=== PATIENT | female | born 1940 | race Caucasian/White ===

== ENCOUNTER 2016-12-10 15:12 | Emergency (ER) | payer MEDICARE, BC ==
[~2016-12-10 15:12] MED LIST: AFLURIA 2045 MCG/0.4 IM; AZULFIDINE DPS500 MG PO; CALTRATE-600 W600 MG PO; CIPRO DPS250 MG PO; COLACE-DPS100 MG PO; COUMADIN1 MG PO; DELTASONE DPS5 MG PO; FLONASE 0.05% D16 GM NS; FOLVITE-DPS1 MG PO; KLOR-CON M2020 ME1 PO; LASIX DPS20 MG PO; MIRALAX PACKET17 GM PO; PEPCID DPS20 MG PO; POTASSIUM CHLORIDE PO; PRILOSEC DPS20 MG PO; PROVENTIL HFA6.7 GM IH; SENOKOT DPS8.6 MG PO; SENOKOT S1 TAB PO; SURFAK DPS240 MG PO; SYNTHROID DPS0.05 MG PO; SYNTHROID75 MCG PO; TENORMIN DPS50 MG PO; TYLENOL DPS325 MG PO; ULTRAM DPS50 MG PO; XANAX DPS0.25 MG PO; ZANAFLEX4 MG PO; ZYRTEC DPS10 MG PO
--- NOTE | 2016-12-28 11:50 | ER ---
ADMIT: 12/10/2016 RM/LOC: ER [facility] MR#: [id number] [address] [id number] [place], [place] [id number] Emergency Room Report SEX: F AGE: 76 : 1940 DATE: 12/10/2016 HISTORY OF PRESENT ILLNESS: She lives at an independent living facility. A 76-year-old female, presents to emergency room with left arm cellulitis for the last 24 hours. She denies any trauma. It is painful. She is right handed. PAST MEDICAL HISTORY: She has had cardiac disease with atrial fibrillation. PAST SURGICAL HISTORY: She has a pacer. IMMUNIZATIONS: Up-to-date. MEDICATIONS: See T-sheet. SOCIAL HISTORY: See T-sheet. FAMILY HISTORY: See T-sheet. PHYSICAL EXAMINATION: VITAL SIGNS: Her blood pressure is 135/66, heart rate of 20, respirations 18, temp is 100.3, O2 sats 100%. In view of the fact that she has cellulitis of the left hand, we decided to screen her and started with labs concerning sepsis, at which point, she did not screen positive for full resuscitative sepsis need, but we did do labs and also did blood cultures. On examination, she does have tenderness, swelling, warmth in left forearm up about her elbow. Sensation is pretty hyper. She is very tender to touch. Fingers do look like rheumatoid arthritis flare-up. LABORATORY DATA: CBC within normal limits with a hemoglobin of 11.6. Total bilirubin 1.7. Albumin 3.3. Sodium 129. Leukocytes 1+, wbc's 9 in the urine as well as hyaline casts 4. I did go ahead and start her on antibiotics as she mentions that in the past, she has been given antibiotics for cellulitis of her left knee but she waited ADMIT: 12/10/2016 RM/LOC: ER [facility] MR#: [id number] [facility] [address] [place] [id number] [place] [address] Emergency Room Report SEX: F AGE: 76 : 1940 a long time to get into the hospital and had to be admitted at that time. She can have a very close followup with her primary provider. I did give her clindamycin 300 mg. Gave her some [place] for pain control. CLINICAL IMPRESSION: 1. Cellulitis, left arm. 2. Rheumatoid arthritis history, nontraumatic. Daughter will be helping her out with her followup and advised that if her symptoms worsen, if the erythema and warmth spread further than what it is right now, and the medication is not helping, she needs to come to the emergency room immediately for reassessment. The patient also verbalized understanding. Discharged. PABLO Duncan / Duy Beatty MD / david JOB #: [id number] CC: Duy Beatty MD, Attending Physician Carline Schilling MD, Family Physician
== END 2016-12-10 18:20 | disposition home or self-care (01) ==
LOC: ER 15:12
DX: L03.114 Cellulitis of left upper limb (principal); Z95.0 Presence of cardiac pacemaker; Z79.82 Long term (current) use of aspirin; Z79.01 Long term (current) use of anticoagulants; Z79.899 Other long term (current) drug therapy